=== PATIENT | female | born 1990 | race Hispanic/Latino ===

== ENCOUNTER 2022-07-15 07:29 | Emergency (ER) | payer BC ==
[~2022-07-15] VITALS: Ht 149.9 cm; Wt 78.0 kg
== END 2022-07-15 08:07 | disposition home or self-care (01) ==
LOC: ER 07:32
DX: R10.2 Pelvic and perineal pain (principal); R60.9 Edema, unspecified
CPT/HCPCS: 99282

== ENCOUNTER → 2022-07-22 | Outpatient (CLI) | payer BC ==
[~2022-07-22] MED LIST: IOPAMIDOL 370 MG/ML 100 ML INFUS..BTL INJ ONE
== END ==
LOC: CT 15:48
PROVIDERS: ATTEND Obstetrics & Gynecology
DX: R19.09 Other intra-abdominal and pelvic swelling, mass and lump (principal); N94.6 Dysmenorrhea, unspecified; K80.20 Calculus of gallbladder without cholecystitis without obstruction; K76.0 Fatty (change of) liver, not elsewhere classified
CPT/HCPCS: 74177; 81025; Q9967